=== PATIENT | male | born 1950 | race Two or more races ===

== ENCOUNTER 2018-11-05 14:15 | Inpatient (IN) | payer OTHER ==
[~2018-11-05] VITALS: Ht 165.1 cm; Wt 81.6 kg
[~2018-11-05 14:15] MED LIST: ADVAIR 2501 DISK W/1 IH; CATAPRES0.1 MG PO; INDERAL LA80 MG; NORVASC5 MG; PAXIL10 MG/5 ML PO; VASOTEC2.5 MG PO; ZANTAC150 MG PO; [UNRECOGNIZED DRUG - OTHER]
== END 2018-11-08 23:06 | disposition home or self-care (01) | DRG 305 ==
LOC: ER 14:15 → MEDI 17:22
PROC: 4A12X4Z Monitoring of Cardiac Electrical Activity, External Approach (ICD-10-PCS; principal; 2018-11-05)
PROC: 4A033R1 Measurement of Arterial Saturation, Peripheral, Percutaneous Approach (ICD-10-PCS; 2018-11-05)
PROC: BW28ZZZ Computerized Tomography (CT Scan) of Head (ICD-10-PCS; 2018-11-05)
PROC: B246ZZZ Ultrasonography of Right and Left Heart (ICD-10-PCS; 2018-11-05)
PROC: 4A12XM4 Monitoring of Cardiac Stress, External Approach (ICD-10-PCS; 2018-11-05)
PROC: 3E073KZ Introduction of Other Diagnostic Substance into Coronary Artery, Percutaneous Approach (ICD-10-PCS; 2018-11-08)
DX: I11.9 Hypertensive heart disease without heart failure (principal); I20.8 Other forms of angina pectoris; G44.209 Tension-type headache, unspecified, not intractable

== ENCOUNTER 2019-07-03 18:24 | Emergency (ER) | payer OTHER ==
[~2019-07-03] VITALS: Ht 165.1 cm; Wt 81.6 kg
[2019-07-03] MEDS ORDERED: NORVASC5 MG (18:55)
== END 2019-07-04 00:14 | disposition home or self-care (01) ==
LOC: ER 18:24
DX: R42 Dizziness and giddiness (principal)

== ENCOUNTER 2021-03-04 08:42 | Emergency (ER) | payer OTHER ==
[~2021-03-04] VITALS: Ht 165.1 cm; Wt 80.7 kg
== END 2021-03-04 15:54 | disposition home or self-care (01) ==
LOC: ER 08:42 → CPU-OBS 09:01 → ER 09:01
DX: R07.89 Other chest pain (principal); R51.9 Headache, unspecified; Z11.52 Encounter for screening for COVID-19
CPT/HCPCS: G0378; G0379; 93005; 70450

== ENCOUNTER 2022-01-04 00:08 | Emergency (ER) | payer OTHER ==
[~2022-01-04] VITALS: Ht 162.6 cm; Wt 80.7 kg
[2022-01-04] MEDS ORDERED: ACETAMINOPHEN650 M2 PO (03:17)
[2022-01-04] MEDS ORDERED: INTESTINEX680 M1 PO (03:17)
[2022-01-04] MEDS ORDERED: CLINDAMYCIN HC300 MG PO (03:17)
== END 2022-01-04 03:23 | disposition home or self-care (01) ==
LOC: ER 00:08
DX: Z98.890 Other specified postprocedural states (principal); R55 Syncope and collapse; R42 Dizziness and giddiness; R07.89 Other chest pain

== ENCOUNTER 2022-09-10 07:58 | Outpatient (CLI) | payer OTHER ==
[~2022-09-10 07:58] MED LIST changes: +ACETAMINOPHEN650 M2 PO; +CLINDAMYCIN HC300 MG PO; +INTESTINEX680 M1 PO
== END 2022-09-10 08:13 | disposition home or self-care (01) ==
LOC: RAD 07:58
PROVIDERS: ATTEND Orthopaedic Surgery
DX: M54.50 Low back pain, unspecified (principal); M25.551 Pain in right hip; M25.552 Pain in left hip; M25.561 Pain in right knee; M25.562 Pain in left knee

== ENCOUNTER 2023-05-18 06:04 | Emergency (ER) | payer OTHER ==
[~2023-05-18] VITALS: Ht 165.1 cm; Wt 81.6 kg
== END 2023-05-18 08:13 | disposition home or self-care (01) ==
LOC: ER 06:04
DX: R10.13 Epigastric pain (principal); R14.3 Flatulence; Z88.0 Allergy status to penicillin

== ENCOUNTER 2023-05-22 12:44 | Outpatient (CLI) | payer OTHER | END 2023-05-22 12:52 | disposition home or self-care (01) | LOC: RAD 12:44 | DX: K59.00 Constipation, unspecified (principal); R10.9 Unspecified abdominal pain ==

== ENCOUNTER 2023-07-30 09:04 | Outpatient (CLI) | payer OTHER | END 2023-07-30 09:07 | disposition home or self-care (01) | LOC: RAD 09:04 | PROVIDERS: ATTEND Orthopaedic Surgery | DX: M25.561 Pain in right knee (principal) ==